=== PATIENT | female | born 1980 | race Two or more races ===

== ENCOUNTER → 2020-06-25 | Outpatient (CLI) | payer OTHER ==
[~2020-06-25] MED LIST: ALBU90OI INH; AMOCLA500 PO; CODGUAEL PO; Cyclobenzaprine5 MG PO; DOXY100 PO; HYDACE5 PO; HYDACE7.5 PO; IBUP800 PO; KETO75 PO; Norco 5-325 Ta1 EACH PO; RXHYDACE PO
[2020-06-26 09:59] LABS: Candida species (DNA Probe) Negative (NEGATIVE); G. vaginalis (DNA Probe) Negative (NEGATIVE); T. vaginalis (DNA Probe) Negative (NEGATIVE)
[2020-06-27 16:08] LABS: HPV 16 Negative (Negative); HPV 18 Negative (Negative); HPV OTHER HR TYPES Negative (Negative)
== END ==
LOC: LAB 14:41 → LAB SHORT 14:41
PROVIDERS: Nurse Practitioner Family
DX: Z00.00 Encounter for general adult medical examination without abnormal findings (principal)
CPT/HCPCS: 87070; 87205; 87480; 87510; 87624; 87660; G0145

== ENCOUNTER 2021-12-13 00:35 | Emergency (ER) | payer OTHER ==
[~2021-12-13] VITALS: Ht 162.6 cm; Wt 52.2 kg
[2021-12-14] MEDS ORDERED: BENZ100A PO (10:04)
== END 2021-12-13 01:52 | disposition home or self-care (01) ==
LOC: ER 00:35
DX: U07.1 COVID-19 (principal); Z87.891 Personal history of nicotine dependence
CPT/HCPCS: 71045; 96372; 99283-25; A9270; J1885

== ENCOUNTER 2022-05-18 13:51 | Emergency (ER) | payer OTHER ==
[~2022-05-18] VITALS: Ht 162.6 cm; Wt 51.3 kg
[~2022-05-18 13:51] MED LIST changes: +BENZ100A PO
[2022-05-18] MEDS ORDERED: Naprosyn500 MG PO (15:22)
== END 2022-05-18 15:34 | disposition home or self-care (01) ==
LOC: ER 13:51
DX: S16.1XXA Strain of muscle, fascia and tendon at neck level, initial encounter (principal); R20.2 Paresthesia of skin; V49.40XA Driver injured in collision with unspecified motor vehicles in traffic accident, initial encounter
CPT/HCPCS: 99283

== ENCOUNTER 2023-04-23 16:33 | Emergency (ER) | payer OTHER ==
[~2023-04-23] VITALS: Ht 162.6 cm; Wt 52.2 kg
[~2023-04-23 16:33] MED LIST changes: +Naprosyn500 MG PO
[2023-04-23 16:40] VITALS: BP 142/92
[2023-04-23] MEDS ORDERED: Diflucan150 MG PO (17:28)
[2023-04-23] MEDS ORDERED: Robaxin750 MG PO (17:28)
[2023-04-23] MEDS ORDERED: Amoxicillin875 MG PO (17:28)
== END 2023-04-23 17:56 | disposition home or self-care (01) ==
LOC: ER 16:33
DX: H66.92 Otitis media, unspecified, left ear (principal); M54.2 Cervicalgia; Z87.891 Personal history of nicotine dependence
CPT/HCPCS: A9270; J1885

== ENCOUNTER 2023-05-10 19:32 | Emergency (ER) | payer OTHER ==
[~2023-05-10] VITALS: Ht 162.6 cm; Wt 51.7 kg
[~2023-05-10 19:32] MED LIST changes: +Amoxicillin875 MG PO; +Diflucan150 MG PO; +Robaxin750 MG PO
[2023-05-10 20:06] VITALS: BP 122/81
[2023-05-10 20:56] LABS: Influenza A, PCR NEGATIVE (NEGATIVE); Influenza B, PCR NEGATIVE (NEGATIVE); Resp Syncytial Virus, PCR NEGATIVE (NEGATIVE); SARS-Cov-2 (COVID-19) PCR, MMC NEGATIVE (NEGATIVE)
== END 2023-05-10 21:54 | disposition home or self-care (01) ==
LOC: ER 19:32
PROVIDERS: Student in an Organized Health Care Education/Training Program
DX: R05.9 Cough, unspecified (principal); R07.89 Other chest pain; J30.9 Allergic rhinitis, unspecified; Z86.16 Personal history of COVID-19; Z79.899 Other long term (current) drug therapy; Z87.891 Personal history of nicotine dependence; Z20.822 Contact with and (suspected) exposure to COVID-19
CPT/HCPCS: 0241U; A9270

== ENCOUNTER 2023-05-12 18:27 | Emergency (ER) | payer OTHER ==
[~2023-05-12] VITALS: Ht 162.6 cm; Wt 51.7 kg
[2023-05-12 18:32] VITALS: BP 137/90
== END 2023-05-12 19:40 | disposition left against medical advice (07) ==
LOC: ER 18:27
DX: Z53.21 Procedure and treatment not carried out due to patient leaving prior to being seen by health care provider (principal)
CPT/HCPCS: 71046

== ENCOUNTER 2024-07-28 22:51 | Emergency (ER) | payer OTHER ==
[~2024-07-28] VITALS: Ht 162.6 cm; Wt 53.1 kg
[2024-07-28] MEDS ORDERED: Ketorolac Tromethamine 30mg Vial IM ONE (22:55)
[2024-07-28] MEDS ORDERED: Diazepam 5 MG Tab PO ONE (23:00)
[2024-07-28 23:45] VITALS: BP 124/87
== END 2024-07-29 00:20 | disposition home or self-care (01) ==
LOC: ER 22:51
DX: S16.1XXA Strain of muscle, fascia and tendon at neck level, initial encounter (principal); V89.2XXA Person injured in unspecified motor-vehicle accident, traffic, initial encounter; Z87.891 Personal history of nicotine dependence; Z79.1 Long term (current) use of non-steroidal anti-inflammatories (NSAID); Z79.899 Other long term (current) drug therapy
CPT/HCPCS: 70450; 72125; 96372; 99284-25; A9270; J1885

== ENCOUNTER 2024-11-20 22:59 | Emergency (ER) | payer OTHER ==
[~2024-11-20] VITALS: Ht 162.6 cm; Wt 54.4 kg
[2024-11-21 00:18] LABS: Source, Urine Clean Catch
[2024-11-21 00:26] LABS: Bilirubin, Urine Neg (Neg); Blood, Urine 5+ (Neg); Glucose Qualitative, Urine Neg (Neg); Ketones, Urine Neg (Neg); Leukocyte Esterase, Urine 1+ (Neg); Nitrite, Urine Neg (Neg); Protein, Urine 1+ (Neg); Urobilinogen, Urine NORM (Normal); pH, Urine 6.5 (5.0-8.0)
[2024-11-21 00:28] LABS: Appearance, Urine Clear (Clear); Color, Urine Yellow (P-Yellow)
[2024-11-21 00:35] LABS: Bacteria Many /hpf; Squamous Epithelial Cells Not Seen /hpf (Few); White Blood Cells, Urine 50-100 /hpf (0-5)
[2024-11-21] MEDS ORDERED: Ketorolac Tromethamine 30mg Vial IV ONE ×2 (00:35→01:25)
[2024-11-21 01:02] LABS: BASOPHILS ABSOLUTE AUTO 0.06 K/mm3 (0.00-0.23); BASOPHILS PERCENT AUTO 1 % (0-2); EOSINOPHILS ABSOLUTE AUTO 0.05 K/mm3 (0.00-0.68); EOSINOPHILS PERCENT AUTO 1 % (0-6); Hematocrit 40.1 % (33.0-51.0); IMMATURE GRAN PERCENT AUTO 0 % (0-1); LYMPHOCYTES ABSOLUTE AUTO 1.88 K/mm3 (0.84-5.20); LYMPHOCYTES PERCENT AUTO 35 % (21-46); MONOCYTES ABSOLUTE AUTO 0.34 K/mm3 (0.16-1.47); MONOCYTES PERCENT AUTO 6 % (4-13); Mean Corpuscular HGB Conc 32.4 g/dL (31.5-36.5); Mean Corpuscular Volume 92 fL (80-100); Mean Platelet Volume 9.7 fL (9.1-12.4); NEUTROPHILS PERCENT AUTO 57 % (41-73); Platelet Count 242 K/mm3 (150-400); RDW Standard Deviation 41.6 fL (35.1-46.3); Red Blood Cell Count 4.34 M/mm3 (3.80-5.20); White Blood Cell Count 5.43 K/mm3 (4.00-11.30)
[2024-11-21 01:10] VITALS: BP 154/95
[2024-11-21 01:21] LABS: Albumin, Blood 3.6 g/dL (3.4-5.0); Albumin/Globulin Ratio 0.9 (0.8-1.8); Bilirubin, Total 0.4 mg/dL (0.1-1.0); Bun/Creatinine Ratio 22.8 (12.0-20.0); Calcium, Blood 9.1 mg/dL (8.5-10.1); Creatinine, Blood 0.61 mg/dL (0.40-1.00); Globulin, Blood 4.1 g/dL (2.2-4.0); Potassium, Blood 3.4 mmol/L (3.5-5.5); Total Protein, Blood 7.7 g/dL (6.4-8.2)
[2024-11-21] MEDS ORDERED: CefTRIAXone Sodium 1,000 MG in NS 50 ML IV ONE (01:25)
[2024-11-21] MEDS ORDERED: CEFD300 PO (03:13)
[2024-11-21] MEDS ORDERED: RX Prepack 2 Tabs Ondansetron ODT 4MG UD ONE (03:15)
[2024-11-21 03:17] LABS: Bacterial Vaginosis PCR Negative (NEGATIVE); Candida Group, PCR NOT DETECTED (NOT DETECT); Candida glabrata-krusei, PCR NOT DETECTED (NOT DETECT)
[2024-11-21] MEDS ORDERED: Diflucan150 MG PO (03:22)
== END 2024-11-21 03:25 | disposition home or self-care (01) ==
LOC: ER 22:59
PROVIDERS: Student in an Organized Health Care Education/Training Program
DX: N39.0 Urinary tract infection, site not specified (principal); Z87.891 Personal history of nicotine dependence
CPT/HCPCS: 80053; 81001; 81025; 85025; 87077; 87086; 87186; 87481; 87661; 87801; 96365; 96375; 99283; A9270; J0696; J1885

== ENCOUNTER → 2024-12-06 | Outpatient (CLI) | payer OTHER ==
[~2024-12-06] MED LIST changes: +CEFD300 PO
== END ==
LOC: LAB SHORT 15:23 → LAB 15:23
DX: N39.0 Urinary tract infection, site not specified (principal)
CPT/HCPCS: 87086

== ENCOUNTER 2025-09-27 20:23 | Emergency (ER) | payer OTHER ==
[~2025-09-27] VITALS: Ht 162.6 cm; Wt 52.2 kg
[2025-09-27] MEDS ORDERED: Ketorolac Tromethamine 30mg Vial IV ONE (20:55)
[2025-09-27] MEDS ORDERED: NS 500 ML IV SCH (21:00)
[2025-09-27 21:28] LABS: BASOPHILS ABSOLUTE AUTO 0.06 K/mm3 (0.00-0.23); BASOPHILS PERCENT AUTO 1 % (0-2); EOSINOPHILS ABSOLUTE AUTO 0.03 K/mm3 (0.00-0.68); EOSINOPHILS PERCENT AUTO 0 % (0-6); Hemoglobin 12.1 g/dL (11.5-16.0); IMMATURE GRAN ABSOLUTE AUTO 0.02 K/mm3 (0.00-0.10); IMMATURE GRAN PERCENT AUTO 0 % (0-1); RDW Coefficient Variation 12.1 % (11.7-14.2)
[2025-09-27 21:41] LABS: Hematocrit 36.8 % (33.0-51.0); LYMPHOCYTES ABSOLUTE AUTO 2.09 K/mm3 (0.84-5.20); LYMPHOCYTES PERCENT AUTO 31 % (21-46); MONOCYTES ABSOLUTE AUTO 0.34 K/mm3 (0.16-1.47); MONOCYTES PERCENT AUTO 5 % (4-13); Mean Corpuscular HGB Conc 32.9 g/dL (31.5-36.5); Mean Corpuscular Volume 91 fL (80-100); NEUTROPHILS ABSOLUTE AUTO 4.24 K/mm3 (1.96-9.15); NEUTROPHILS PERCENT AUTO 63 % (41-73); NRBC ABSOLUTE 0.02 K/mm3 (0.00-0.02); NRBC Auto 0.3 /100 WBC (0.0-0.2); RDW Standard Deviation 40.7 fL (35.1-46.3)
[2025-09-27 21:44] LABS: Alanine Aminotransfer (ALT/SGP 17.0 U/L (12-78); Albumin, Blood 3.6 g/dL (3.4-5.0); Albumin/Globulin Ratio 1.0 (0.8-1.8); Anion Gap 8.0 mmol/L (3-11); Aspartate Aminotrans (AST/SGOT 12.0 U/L (12-37); Bilirubin, Total 0.5 mg/dL (0.1-1.0); Blood Urea Nitrogen 16.0 mg/dL (8-24); CO2, Blood 27.0 mmol/L (21-32); Calcium, Blood 8.8 mg/dL (8.5-10.1); Chloride, Blood 106.0 mmol/L (98-108); Creatinine, Blood 0.66 mg/dL (0.40-1.00); Globulin, Blood 3.7 g/dL (2.2-4.0); Glucose, Blood 109.0 mg/dL (70-99); Potassium, Blood 3.5 mmol/L (3.5-5.5); Sodium, Blood 137.0 mmol/L (136-145); Total Protein, Blood 7.3 g/dL (6.4-8.2)
[2025-09-27 22:08] LABS: Platelet Count 312 K/mm3 (150-400)
[2025-09-28] VITALS: BP 163/96
[2025-09-28] MEDS ORDERED: Robaxin750 MG PO (00:18)
== END 2025-09-28 00:29 | disposition home or self-care (01) ==
LOC: ER 20:23
PROVIDERS: Student in an Organized Health Care Education/Training Program
DX: I10 Essential (primary) hypertension (principal); F41.9 Anxiety disorder, unspecified; G89.29 Other chronic pain; Z87.891 Personal history of nicotine dependence; F43.9 Reaction to severe stress, unspecified
CPT/HCPCS: 80053; 83880; 84484; 85025; 93005; 93010; 96374; 99283-25; A9270; J1885; J7030

== ENCOUNTER → 2025-10-18 | Outpatient (CLI) | payer OTHER | LOC: LAB 15:49 → LAB SHORT 15:49 | DX: N39.0 Urinary tract infection, site not specified (principal) | CPT/HCPCS: 87086 ==